=== PATIENT | female | born 1960 ===

== ENCOUNTER 2021-08-08 07:34 | Emergency (ER) | payer OTHER ==
[~2021-08-08] VITALS: Ht 170.2 cm; Wt 108.4 kg
[2021-08-08] MEDS: DEXTROSE (50%) 50ML SYRG IV ONE ×2 (07:52→07:58)
[2021-08-08] MEDS ORDERED: SODIUM CHLORIDE 0.9% 1,000 ML IV ONE (08:00)
[2021-08-08] MEDS ORDERED: DEXTROSE 10% 0 ML IV ONE (08:00)
[2021-08-08] MEDS ORDERED: DEXTROSE 10% 1,000 ML IV ONE (08:00)
[2021-08-08] MEDS ORDERED: cefTRIAXone 1GM/50ML D5W 50 ML IV ONE (08:30)
[2021-08-08 09:04] LABS: Urine Bacteria FEW /hpf (None Seen); Urine Blood 2+ /uL (Negative); Urine WBC 4586 /hpf (0 - 5)
[2021-08-08 09:06] LABS: Urine Specific Gravity 1.016 (1.001-1.035)
[2021-08-08 10:04] LABS: Basophils # (auto) 0 10 ^3/uL (0-0.2); Basophils % (auto) 0.3 % (0.0-2.0); Eosinophils # (auto) 0 10 ^3/uL (0-0.8); Eosinophils % (auto) 0.1 % (0.0-7.0); Lymphocytes # (auto) 0.8 10 ^3/uL (0.4-5.4); Monocytes # (auto) 0.6 10 ^3/uL (0-1.3)
[2021-08-08 10:06] LABS: Hematocrit 19.3 % (36.0-46.0); Mean Corpuscular Hemoglobin 28.8 pg (28.0-32.0); Mean Corpuscular Hgb Conc. 31.6 g/dL (32.0-36.0); Mean Corpuscular Volume 90.9 fL (80.0-100.0); Monocytes % (auto) 5.7 % (0.0-12.0); Neutrophils # (auto) 8.7 10 ^3/uL (1.6-8.6); Neutrophils % (auto) 85.9 % (37.0-80.0); Nucleated Red Blood Cells % 0.3 %; Red Blood Cells 2.12 10^6/uL (4.0-5.20); White Blood Cell 10.2 10^3/uL (4.4-10.8)
[2021-08-08] MEDS ORDERED: DEXTROSE 50% SYRINGE 50 ML IV ONE (10:19)
[2021-08-08 10:27] LABS: INR 1.23 (0.9-1.15)
[2021-08-08 10:30] LABS: Hemoglobin 6.1 g/dL (12.2-16.2)
[2021-08-08 10:30] LABS: Partial Thromboplastin Time 71.7 sec (23.6-33.0)
[2021-08-08] MEDS ORDERED: metroNIDAZOLE 500MG/100ML 100 ML IV ONE (10:30)
[2021-08-08] MEDS ORDERED: DEXTROSE 10% 1,000 ML IV SCH (10:30)
[2021-08-08 11:13] LABS: Alanine Aminotransferase < 6 U/L (13-56); Anion Gap 10 (5-15); BUN/Creatinine Ratio 10.4; Calcium 7.2 mg/dL (8.5-10.1); Carbon Dioxide 22 mmol/L (21-32); Chloride 104 mmol/L (98-107); GFR African American 6 mL/min; GFR Non-African American 5 mL/min; Glucose 67 mg/dL (74-106); Potassium 3.5 mmol/L (3.5-5.1); Sodium 136 mmol/L (136-145)
[2021-08-08 11:23] LABS: Alkaline Phosphatase 175 U/L (45-117); Aspartate Aminotransferase 27 U/L (15-37); Bilirubin, Total 0.4 mg/dL (0.2-1.0); Total Protein 4.1 g/dL (6.4-8.2)
[2021-08-08 11:35] LABS: Blood Urea Nitrogen 87 mg/dL (7-18)
[2021-08-08 14:50] VITALS: BP 100/61
[2021-08-08] MEDS ORDERED: ONDANSETRON HCL 4 MG/2 ML VIAL ONE (14:55)
[2021-08-08] MEDS ORDERED: ONDANSETRON HCL 4 MG/2 ML VIAL IV ONE (15:00)
[2021-08-08 15:05] VITALS: BP 88/55
[2021-08-08] MEDS ORDERED: PANTOPRAZOLE 40 MG/10 ML VIAL INJ IV ONE ×2 (15:23→15:30)
[2021-08-08 16:31] VITALS: BP 115/55
[2021-08-08 18:06] VITALS: BP 139/63
== END 2021-08-08 18:42 | disposition short-term general hospital (02) ==
LOC: ER 07:34 → EDBD 07:34 → ER 18:42
DX: A41.9 Sepsis, unspecified organism (principal); G93.41 Metabolic encephalopathy; E11.649 Type 2 diabetes mellitus with hypoglycemia without coma; E11.22 Type 2 diabetes mellitus with diabetic chronic kidney disease; I13.0 Hypertensive heart and chronic kidney disease with heart failure and stage 1 through stage 4 chronic kidney disease, or unspecified chronic kidney disease; N18.9 Chronic kidney disease, unspecified; I50.89 Other heart failure; Z88.6 Allergy status to analgesic agent
CPT/HCPCS: 36415; 36430; 70450; 71045; 73200; 74176; 80053; 81001; 82962; 83605; 84484; 85025; 85610; 85730; 86850; 86870; 86900; 86901; 86902; 86905; 87040; 87086; 87088; 87186; 87426; 93005; 96365; 96366; 96367; 96375; 99291; C9113; J0696; J2405; J3490; J7042; P9016; 86922